=== PATIENT | male | born 1970 | race American Indian/Alaskan Native ===

== ENCOUNTER 2018-09-11 12:28 | Emergency (ER) | payer SELFPAY ==
[2018-09-11 12:44] VITALS: BP 133/76
--- NOTE | 2018-09-11 12:48 | Emergency Department Report ---
Chief Complaint: Dental/Oral Stated Complaint: RT SIDE TOOTHACHE/PAIN Time Seen by Provider: 09/11/18 12:43 - HPI History of Present Illness: This is a 48 y.o. male that presents to the ER with toothache since last night. Patient reports a whole in right lower side tooth for months. Patient states he neglected to follow up a dentist prior to today. He have an appointment tomorrow with a dentist. He was told to come to the ER for pain control until appointment. Denies sore throat, difficulty swallowing, drooling, or fever. - ROS Review of Systems: HEENT: dental pain. - Exam Vital Signs: Vital Signs 09/11/18 12:43 Temperature 98.1 F Pulse Rate 68 Respiratory 16 Rate Blood Pressure 133/76 O2 Sat by Pulse 100 Oximetry Physical Exam: GENERAL: The patient is well looking, in no acute distress. HEENT: Black dental caries and half of a tooth at #29 & #30, surrounding mucosal swelling, tender, no palpable cyst. Atraumatic and normocephalic. Pupils are equal, round, reactive to light, and accommodation. Extraocular movements are intact. There is no icterus, cyanosis, or pallor of the conjunctivae. Tympanic membranes normal bilaterally. Nasal turbinates are clear without exudates. Sinuses nontender to percussion. Posterior pharynx is normal. No exudates are noted. CHEST: Air entry is adequate bilaterally with no rhonchi, and crackles. HEART: Sounds 1 and 2 are heard and are normal. Regular rate and rhythm, no tachycardic, murmurs, gallops, or rubs. ABDOMEN: Soft and nontender. Bowel sounds are present and normal. There is no hepatosplenomegaly. SKIN: Without rash. EXTREMITIES: Without edema, cyanosis, or clubbing. MSE screening note: Focused history and physical exam performed. Due to findings the following was ordered: ED Disposition for MSE Clinical Impression: Dental caries, Toothache Disposition: TO HOME OR SELFCARE Is pt being admited?: No Does the pt Need Aspirin: No Condition: Stable Instructions: Dental Caries (ED), Toothache (ED) Additional Instructions: Complete full course of antibiotics. Avoid drinking alcohol while taking antibiotics and for up to 24 hours after completion. Follow up with a dentist. I have provided a list of dentist to follow up with janis. Return to the emergency room if increased pain, swelling, difficulty swallowing or breathing. Prescriptions: Amoxicillin/Potassium Clav [Augmentin 875-125 Tablet] 1 each PO BID #14 tablet Acetaminophen/Codeine [Tylenol /Codeine # 3 tab] 1 tab PO Q6H PRN #12 tab PRN Reason: Pain , Severe (7-10) Referrals: [facility] [Outside] - 3-5 Days [facility] [Outside] - 3-5 Days [facility] [Outside] - 3-5 Days Forms: Work/School Release Form(ED) Time of Disposition: 13:32
== END 2018-09-11 15:25 | disposition home or self-care (01) ==
LOC: ED 12:28
DX: K02.9 Dental caries, unspecified (principal); Z88.1 Allergy status to other antibiotic agents; Z88.6 Allergy status to analgesic agent
CPT/HCPCS: 99282